=== PATIENT | male | born 1975 | race Caucasian/White ===

== ENCOUNTER 2023-01-31 18:46 | Emergency (ER) | payer MEDICAID, OTHER ==
[~2023-01-31] VITALS: Ht 188 cm; Wt 87.5 kg
[2023-01-31 19:24] LABS: BASOPHILS # (AUTO) 0.4 K/UL (0.0-0.2); BASOPHILS % (AUTO) 4.2 % (0.0-2.0); EOSINOPHILS # (AUTO) 0.1 K/uL (0.0-0.7); EOSINOPHILS % (AUTO) 1.2 % (0.0-7.0); HEMATOCRIT 42.9 % (36.7-47.1); HEMOGLOBIN 14.3 g/dL (12.5-16.3); LYMPHOCYTES # (AUTO) 1.5 K/uL (0.8-4.8); LYMPHOCYTES % (AUTO) 15.9 % (20.5-51.5); MEAN CORPUSCULAR HEMOGLOBIN 30.5 uug (23.8-33.4); MEAN CORPUSCULAR HGB CONC 33 g/dL (32.5-36.3); MEAN CORPUSCULAR VOLUME 91.7 fL (73.0-96.2); MONOCYTES # (AUTO) 0.3 K/uL (0.1-1.30); MONOCYTES % (AUTO) 2.8 % (0.0-11.0); NEUTROPHILS # (AUTO) 7.2 K/uL (1.8-8.9); NEUTROPHILS % (AUTO) 75.9 % (38.5-71.5); PLATELET COUNT (AUTO) 346 K/uL (152-348); RED BLOOD CELL COUNT(AUTO) 4.68 MIL/uL (4.06-5.63); RED CELL DISTRIBUTION WIDTH 12.5 % (12.1-16.2); WHITE BLOOD COUNT (AUTO) 9.5 K/uL (3.6-10.2)
[2023-01-31 19:26] LABS: CALCIUM 10.3 mg/dL (8.5-10.1); CARBON DIOXIDE 26 mmol/L (21-32); CHLORIDE 103 mmol/L (98-107); CREATININE 1.1 mg/dL (0.6-1.3); GLUCOSE 117 mg/dL (74-106); SODIUM SERUM 139 mmol/L (136-145); UREA NITROGEN, BLOOD 16 mg/dL (7-18)
[2023-01-31] MEDS ORDERED: ONDANSETRON 4 MG/2 ML VIAL ONE (19:57)
[2023-01-31] MEDS ORDERED: LORAZEPAM 2 MG/1 ML VIAL ONE (19:58)
[2023-01-31] MEDS ORDERED: IV NORMAL SALINE 1000 ML BAG IV ONE (20:00)
[2023-01-31] MEDS ORDERED: ONDANSETRON 4 MG/2 ML VIAL IV ONE (20:00)
[2023-01-31] MEDS ORDERED: LORAZEPAM 2 MG/1 ML VIAL IV ONE (20:00)
[2023-01-31] MEDS ORDERED: ONDA4TAB11 PO (21:31)
[2023-01-31 23:19] VITALS: BP 135/86; TEMP 98.5; O2SAT 98
== END 2023-01-31 23:19 | disposition home or self-care (01) ==
LOC: ER 18:53 → EDBD 18:53 → ER 23:19
DX: E86.0 Dehydration (principal); R42 Dizziness and giddiness; Z79.899 Other long term (current) drug therapy
CPT/HCPCS: 36415; 71045; 84484; 85025; 93005; A4606; A4663; J2060; J2405; J7040